=== PATIENT | male | born 1925 | race Caucasian/White ===

== ENCOUNTER 2017-11-16 17:09 | Emergency (ER) | payer OTHER, BC ==
[2017-11-16 17:36] VITALS: BP 133/60; PULSE 60; TEMP 97.4; BMI 24.3
[2017-11-16 18:46] LABS: BASO % 1.4 % (0-2.0); EOS % 1.1 % (0-4.5); HEMATOCRIT 39.4 % (35.4-49); HEMOGLOBIN 13.2 GM/dL (11.7-16.9); LYMPH % 16.6 % (8-40); MCH 30.5 pg (25.7-33.7); MCHC 33.5 g/dl (32.0-35.9); MEAN CELL VOLUME 91.1 fl (80-96); MEAN PLT VOLUME 7.7 fl (7.5-11.1); MONO % 7.9 % (3.8-10.2); PLATELET COUNT 226 K/MM3 (134-434); RBC 4.32 M/mm3 (4.00-5.60); RDW 16.7 % (11.9-15.9); WHITE BLOOD COUNT 8.3 K/mm3 (4.0-10.0)
[2017-11-16 19:00] LABS: INR 1.92 (0.83-1.09); PROTHROMBIN TIME (PATIENT) 21.7 SEC (9.7-13.0)
--- NOTE | 2017-11-16 19:07 | PDOC ---
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 Patient states that he took his insulin this morning then ate later and not as much as he normally does. He reports being diaphoretic and feeling dizzy/weak. EMS blood sugar was 54. Given crackers , juice. Patient states that he feels fine now. Denies chest pain, shortness of breath, nausea, vomiting. Denies trauma/fall. EMS was called by his visiting nurse. Past History - Past Medical History Allergies/Adverse Reactions: Allergies Allergy/AdvReac Type Severity Reaction Status Date / Time No Known Allergies Allergy Verified 06/21/17 09:23 Home Medications: Ambulatory Orders Levothyroxine [Synthroid] 88 mcg PO DAILY 07/23/12 Warfarin Sodium [Coumadin] 2 mg PO SUMOTUTHFR 02/16/14 Aspirin [ASA -] 81 mg PO DAILY #1 tab.chew 02/18/14 Sitagliptin Phosphate [Januvia -] 50 mg PO DAILY@0700 #1 tablet 02/18/14 Atorvastatin Calcium [Lipitor] 10 mg PO DAILY 06/21/17 Bacitracin - [Bacitracin Topical Ointment -] 1 applic TP DAILY #1 bottle Cholecalciferol (Vitamin D3) [Vitamin D3] 1,000 unit PO DAILY 06/21/17 Cyanocobalamin [Vitamin B12 -] 1,000 mcg PO DAILY 06/21/17 Digoxin [Lanoxin -] 0.125 mg PO DAILY 06/21/17 Insulin Detemir [Levemir Flextouch] 18 unit SQ AM 06/21/17 Insulin Detemir [Levemir Flextouch] 20 unit SQ HS 06/21/17 Metoprolol Succinate [Toprol XL -] 25 mg PO HS 06/21/17 Pantoprazole Sodium [Protonix] 40 mg PO DAILY 06/21/17 Torsemide 100 mg PO DAILY 06/21/17 Warfarin Sodium [Coumadin] 4 mg PO WESA 06/21/17 Anemia: Yes (vit b 12 deficiency) Asthma: No Cancer: No Cardiac Disorders: Yes (A FIB,chf,RHEUMATIC AORTIC STENOSIS.) CVA: Yes (2008) COPD: No CHF: Yes Dementia: No Diabetes: Yes GI Disorders: Yes (gerd) Disorders: No HTN: Yes Hypercholesterolemia: Yes Liver Disease: No Seizures: No Thyroid Disease: Yes (hypo thyroidism) - Surgical History Abdominal Surgery: Yes (hiatal hernia repair in 1949) Appendectomy: No Cardiac Surgery: Yes (valve replacement, card stent) Cholecystectomy: No Lung Surgery: No Orthopedic Surgery: Yes (rt hip replacement in 1997) - Suicide/Smoking/Psychosocial Hx Smoking Status: Yes Smoking History: Former smoker Have you smoked in the past 12 months: No Number of Cigarettes Smoked Daily: 0 If you are a former smoker, when did you quit?: 40 years ago Information on smoking cessation initiated: No Hx Alcohol Use: No Drug/Substance Use Hx: No Substance Use Type: None Hx Substance Use Treatment: No Review of Systems - Review of Systems Comments:: 11/16/17 19:04 GENERAL/CONSTITUTIONAL: No fever or chills. +weakness. HEAD, EYES, EARS, NOSE AND THROAT: No change in vision. No sore throat. CARDIOVASCULAR: No chest pain or shortness of breath RESPIRATORY: No cough, wheezing, or hemoptysis. GASTROINTESTINAL: No nausea, vomiting, diarrhea or constipation. GENITOURINARY: No dysuria, frequency, or change in urination. MUSCULOSKELETAL: No joint or muscle swelling or pain. No neck or back pain. SKIN: No rash NEUROLOGIC: No headache, +vertigo. No loss of consciousness, or change in strength/sensation. ENDOCRINE: No increased thirst. No abnormal weight change HEMATOLOGIC/LYMPHATIC: No anemia, easy bleeding, or history of blood clots. ALLERGIC/IMMUNOLOGIC: No hives or skin allergy. *Physical Exam - Vital Signs Last Vital Signs Temp Pulse Resp BP Pulse Ox 97.4 F L 60 18 133/60 100 11/16/17 17:33 11/16/17 17:33 11/16/17 17:33 11/16/17 17:33 11/16/17 17:33 - Physical Exam Comments: 11/16/17 19:04 GENERAL: Awake, alert, and fully oriented, in no acute distress HEAD: No signs of trauma, normocephalic, atraumatic EYES: PERRLA, EOMI, sclera anicteric, conjunctiva clear ENT: Auricles normal inspection, hearing grossly normal, nares patent, oropharynx clear without exudates. Moist mucosa. Chronic appearing skin lesion on nose NECK: Normal ROM, supple, no lymphadenopathy, JVD, or masses LUNGS: No distress, speaks full sentences, clear to auscultation bilaterally HEART: Regular rate and rhythm, normal S1 and S2, no murmurs, rubs or gallops, peripheral pulses normal and equal bilaterally. ABDOMEN: Soft, nontender, normoactive bowel sounds. No guarding, no rebound. No masses EXTREMITIES: Normal inspection, Normal range of motion, no edema. No clubbing or cyanosis. NEUROLOGICAL: Cranial nerves II through XII grossly intact. Normal speech, no focal sensorimotor deficits SKIN: Warm, Dry, normal turgor, no rashes or lesions noted. ED Treatment Course - LABORATORY CBC & Chemistry Diagram: 11/16/17 15:45 11/16/17 15:45 - ADDITIONAL ORDERS Additional order review: Laboratory Results 11/16/17 17:27 POC Glucometer [id number] 11/16/17 11/16/17 17:27 15:45 RBC 4.32 MCV 91.1 MCHC 33.5 RDW 16.7 H MPV 7.7 Neutrophils % 73.0 Lymphocytes % 16.6 Monocytes % 7.9 Eosinophils % 1.1 Basophils % 1.4 POC Glucometer [id number] - RADIOLOGY Radiology Studies Ordered: Category Date Time Status CHEST X-RAY PORTABLE* [RAD] Stat Radiology 11/16/17 18:02 Ordered Medical Decision Making - Medical Decision Making 11/16/17 19:05 Patient is 89M with history of DM, afib, nasal SCC here today complaining of low blood sugar. DDx includes: hypoglycemia, near syncope. Will do cardiac workup to evaluate for cardiogenic and infectious causes. Patient is on no long acting sulfanylureas for blood glucose. Will monitor, dispo pending workup. 11/16/17 21:18 Laboratory Tests 11/16/17 11/16/17 11/16/17 15:45 15:45 15:45 WBC 8.3 Hgb 13.2 Plt Count 226 INR 1.92 H BUN 26 H Creatinine 1.0 POC Glucometer Random Glucose 191 H D Troponin I < 0.02 11/16/17 17:27 WBC Hgb Plt Count INR BUN Creatinine POC Glucometer [id number] Random Glucose Troponin I CBC normal. CMP unremarkable. Glucose first in 80s, repeat 191 after eating. EKG shows afib with rate of 56. No st elevations/depressions. Left anterior fascicular block patter. Biphasic t waves in V3-V6. LAFB old compared to EKG. T wave changes slightly more. Patient states that he does not want to stay in the hospital. States that he has a home energy consultant that will see him in the morning. States that he wants to go home because he's more comfortably there and that this is in line with his goals of care. Patient is of sound mind, fully alert and oriented. Attempted to contact patient's family at only number chart: [phone]. No answer. *DC/Admit/Observation/Transfer Diagnosis at time of Disposition: Hypoglycemia - Discharge Dispostion Disposition: AGAINST MEDICAL ADVICE Condition at time of disposition: Stable Decision to Admit order: No - Referrals - Patient Instructions - Post Discharge Activity
[2017-11-16 19:12] LABS: ALBUMIN 3.5 g/dl (3.4-5.0); ANION GAP 10 MMOL/L (8-16); BLOOD UREA NITROGEN 26 mg/dL (7-18); CALCIUM 8.6 mg/dL (8.5-10.1); CHLORIDE 93 mmol/L (98-107); CO2 32 mmol/L (21-32); GLUCOSE,RANDOM 191 mg/dL (74-106); MAGNESIUM 1.9 mg/dL (1.8-2.4); POTASSIUM 4.4 mmol/L (3.5-5.1); SGOT/AST 23 U/L (15-37); SGPT/ALT 14 U/L (12-78); SODIUM 135 mmol/L (136-145)
[2017-11-16 19:17] LABS: ALK PHOS 86 U/L (45-117); BILIRUBIN,TOTAL 0.5 mg/dL (0.2-1.0); TOT PROT 7.7 g/dl (6.4-8.2)
--- NOTE | 2017-11-16 20:30 | PDOC ---
Attending Attestation - Resident Resident Name: Markus Le - ED Attending Attestation I have performed the following: I have examined & evaluated the patient, The case was reviewed & discussed with the resident, I agree w/resident's findings & plan, Exceptions are as noted - HPI HPI: 11/16/17 20:27 89-year-old male history of A. fib, aortic stenosis, hypertension diabetes who today with a hypoglycemic episode. Patient states he did not eat very much today he has not been eating or drinking as much recently as his 3 weeks ago. Denies any chest pain palpitations no fevers or chills states he takes Levemir near in the morning and evening no other current complaints. Patient states he started feeling dizzy and lightheaded he called EMS and his sugar was in the 50s he was given something to eat and drink since has been feeling fine - Physicial Exam PE: 11/16/17 20:28 Awake alert no acute distress. Nose is with a scab lesion covering the majority of the nasal bridge consistent with patient's known cancer moist mucous membranes lungs are clear bilaterally heart is with a systolic murmur no rubs or gallops abdomen is soft nontender extremities are warm and well-perfused atraumatic skin is described as above - Medical Decision Making 11/16/17 20:29 Patient given something to eat and drink here in the ED. He was observed for several hours on repeat testing patient's glucose is 189 patient was offered admission and observation due to the fact he is on a long-acting insulin he is adamantly refusing. He is aware of the risks and benefits including a possible hypoglycemic episode during the night he does have a home health aide that comes in the a.m. Attempt to contact the patient's daughter who lives in [place] to inform them of his well-being and the patient's PCP Heart Score/ECG Review #1 General ECG Interpretation: Normal Rate, Normal Intervals, No acute ischemic changes (TWI I, AVL) Compared to previous ECG there are: Other (comparison 2013 afib)
--- NOTE | 2017-11-18 13:42 | EKG ---
Test Reason : Blood Pressure : / mmHG Vent. Rate : 056 BPM Atrial Rate : 053 BPM P-R Int : 000 ms QRS Dur : 110 ms QT Int : 502 ms P-R-T Axes : 000 -62 079 degrees QTc Int : 484 ms POOR DATA QUALITY, INTERPRETATION MAY BE ADVERSELY AFFECTED ATRIAL FIBRILLATION WITH SLOW VENTRICULAR RESPONSE INCOMPLETE RIGHT BUNDLE BRANCH BLOCK LEFT ANTERIOR FASCICULAR BLOCK CANNOT RULE OUT ANTEROSEPTAL INFARCT , AGE UNDETERMINED ABNORMAL ECG WHEN COMPARED WITH ECG OF 16-FEB-2014 17:35, MINIMAL CRITERIA FOR ANTEROSEPTAL INFARCT ARE NOW PRESENT Confirmed by ROSALINDA LACEY MD ([id number]) on 11/18/2017 1:42:31 PM Referred By: Confirmed By:ROSALINDA LACEY MD
== END 2017-11-16 22:21 | disposition left against medical advice (07) ==
LOC: JER 17:09
DX: I48.91 Unspecified atrial fibrillation (principal); Z85.828 Personal history of other malignant neoplasm of skin
CPT/HCPCS: 36415; 71045-TC-FY; 80053; 82550; 82962; 83735; 84484; 85025; 85610; 93005; 93010; 99282-25; 99284-25